=== PATIENT | female | born 1935 | race Caucasian/White ===

== ENCOUNTER 2017-09-07 19:01 | Emergency (ER) | payer OTHER, MEDICARE ==
[~2017-09-07] VITALS: Ht 411.5 cm; Wt 61.7 kg
[~2017-09-07 19:01] MED LIST: ASCORBIC ACID500 M3 PO; ASPIRIN81 M2 PO; ATORVASTATIN CA10 MG PO; ATORVASTATIN CA20 MG PO; BACTRIM,SEPT1 TABLET PO; CALCIUM 600 +1 EAC4 PO; FERREX 150150 MG PO; FERROUS SULFAT325 MG PO; FOLIC ACID1 MG PO; FUROSEMIDE20 MG PO; GLIMEPIRIDE2 MG PO; GLYBURIDE5 MG PO; HYDROCODON-ACE1 EAC7 PO; KLOR-CON 1010 ME1 PO; MAG-OXIDE400 MG PO; METRONIDAZOLE500 MG PO; OMEPRAZOLE20 MG PO; OXYCODONE HCL5 MG PO; POLYETHYLENE GL17 GM PO; RANITIDINE HCL150 MG PO; SENNA-TIME S T1 EACH PO; THERAGRAN1 TABLET PO; TYLENOL EXTRA500 MG PO
[2017-09-07 22:37] LABS: POINT-OF-CARE METER ID UU13113800
[2017-09-07 23:43] VITALS: BP 118/61
== END 2017-09-07 23:46 | disposition home or self-care (01) ==
LOC: EME 19:01
PROVIDERS: Physician Assistant Medical
DX: S80.12XA Contusion of left lower leg, initial encounter (principal); S00.83XA Contusion of other part of head, initial encounter; M79.602 Pain in left arm; M25.552 Pain in left hip; M54.9 Dorsalgia, unspecified; W03.XXXA Other fall on same level due to collision with another person, initial encounter; M16.0 Bilateral primary osteoarthritis of hip; E11.9 Type 2 diabetes mellitus without complications; Z79.84 Long term (current) use of oral hypoglycemic drugs; Z79.82 Long term (current) use of aspirin
CPT/HCPCS: 70450; 70486; 72100; 73060; 73502; 82948; 99281; 99284

== ENCOUNTER 2018-02-26 21:17 | Inpatient (IN) | payer OTHER, MEDICARE ==
[~2018-02-26] VITALS: Ht 149.9 cm; Wt 57.2 kg
[2018-02-26 21:50] LABS: BASOPHIL (%) 0.1 % (0-1); EOSINOPHIL (%) 0.1 % (0-5); HEMATOCRIT 27.9 % (36.0-46.0); HEMOGLOBIN 9.3 G/DL (11.9-15.5); IMMATURE GRANULOCYTE (%) 0.6 % (0.0-0.7); LYMPHOCYTE (%) 9.2 % (15-42); LYMPHOCYTE COUNT 0.6 K/uL (1.0-2.8); MCH 33.1 PG (29.0-34.0); MCHC 33.3 G/DL (30.0-36.0); MCV 99.3 FL (83-99); MONOCYTE (%) 5.9 % (3-12); MONOCYTE COUNT 0.4 K/uL (0-0.8); NEUTROPHIL (%) 84.1 % (45-76); NEUTROPHIL COUNT 5.7 K/uL (1.8-6.4); PLATELET COUNT 216 K/uL (156-360); RBC DIS.WIDTH-CV 14.5 % (11.8-14.6); RBC DIS.WIDTH-SD 52.8 % (39-53); RED BLOOD COUNT 2.81 M/uL (3.80-5.20); WHITE BLOOD COUNT 6.8 K/uL (4.1-10.2)
[2018-02-26 22:09] LABS: CHLORIDE 104 MEQ/L (99-109); POTASSIUM 3.7 MEQ/L (3.7-5.4); SODIUM 142 MEQ/L (136-147); TOTAL BILIRUBIN 0.6 MG/DL (0.0-1.0)
[2018-02-26 22:18] LABS: TROP-I INTERPRETATION NEGATIVE; TROPONIN-I < 0.01 ng/mL (0.0-0.30)
[2018-02-26 22:19] LABS: ALKALINE PHOSPHATASE 59 IU/L (3-129); ALT (GPT) 12 IU/L (3-49); AST (GOT) 19 IU/L (2-34); CREATININE 0.7 MG/DL (0.6-1.3); GFR ESTIMATE (CALCULATED) > 59 mL/min/; GLUCOSE 176 mg/dL (70-99); TOTAL PROTEIN 6.3 G/DL (6.4-8.3); UREA NITROGEN (BUN) 22 mg/dL (9-23)
[2018-02-26 22:30] LABS: LIPASE 712 U/L (1.0-51.0)
[2018-02-26] MEDS ORDERED: ONE DAILY MULT1 EACH PO (23:34)
[2018-02-26] MEDS ORDERED: METFORMIN HCL500 MG PO (23:42)
[2018-02-26] MEDS ORDERED: K-DUR10 MEQ PO (23:43)
[2018-02-26] MEDS ORDERED: TRAMADOL HCL50 MG PO (23:43)
[2018-02-27] VITALS (7 sets, daily range): BP systolic 100–116; BP diastolic 49–64
[2018-02-27 02:31] LABS: C-REACTIVE PROTEIN 1.5 MG/L (0-10)
[2018-02-27 06:18] LABS: BASOPHIL (%) 0.3 % (0-1); EOSINOPHIL (%) 0 % (0-5); HEMATOCRIT 25.9 % (36.0-46.0); HEMOGLOBIN 8.4 G/DL (11.9-15.5); IMMATURE GRANULOCYTE (%) 0.5 % (0.0-0.7); LYMPHOCYTE (%) 6.3 % (15-42); LYMPHOCYTE COUNT 0.4 K/uL (1.0-2.8); MCH 32.8 PG (29.0-34.0); MCHC 32.4 G/DL (30.0-36.0); MCV 101.2 FL (83-99); MONOCYTE (%) 4.3 % (3-12); MONOCYTE COUNT 0.3 K/uL (0-0.8); NEUTROPHIL (%) 88.6 % (45-76); NEUTROPHIL COUNT 5.7 K/uL (1.8-6.4); PLATELET COUNT 199 K/uL (156-360); RBC DIS.WIDTH-CV 14.7 % (11.8-14.6); RBC DIS.WIDTH-SD 54.4 % (39-53); RED BLOOD COUNT 2.56 M/uL (3.80-5.20); WHITE BLOOD COUNT 6.5 K/uL (4.1-10.2)
[2018-02-27 06:26] LABS: ALBUMIN 3.6 G/DL (3.2-4.8); ALKALINE PHOSPHATASE 50 IU/L (3-129); ALT (GPT) 12 IU/L (3-49); AST (GOT) 20 IU/L (2-34); CHLORIDE 105 MEQ/L (99-109); CREATININE 0.7 MG/DL (0.6-1.3); GFR ESTIMATE (CALCULATED) > 59 mL/min/; GLUCOSE 146 mg/dL (70-99); SODIUM 145 MEQ/L (136-147); TOTAL BILIRUBIN 0.5 MG/DL (0.0-1.0); TOTAL PROTEIN 5.6 G/DL (6.4-8.3); UREA NITROGEN (BUN) 19 mg/dL (9-23)
[2018-02-27 08:26] LABS: LIPASE 216 U/L (1.0-51.0)
[2018-02-27 11:40] LABS: APPEARANCE CLEAR ((CLEAR)); BILIRUBIN NEGATIVE; BLOOD NEGATIVE; COLOR YELLOW ((YELLOW)); GLUCOSE (STRIP) 50; KETONES 20; LEUKOCYTES NEGATIVE; NITRITE NEGATIVE; PROTEIN (STRIP) NEGATIVE; SPECIFIC GRAVITY 1.045 (1.000-1.030); UCUL ADDED? NO; UROBILINOGEN 0.2 MG/DL (0.2-1.0)
[2018-02-28 03:45] VITALS: BP 107/54
[2018-02-28 06:20] LABS: BASOPHIL (%) 0.8 % (0-1); BASOPHIL COUNT 0.1 K/uL (0-0.1); EOSINOPHIL (%) 0.5 % (0-5); HEMATOCRIT 26.4 % (36.0-46.0); HEMOGLOBIN 8.5 G/DL (11.9-15.5); IMMATURE GRANULOCYTE (%) 0.5 % (0.0-0.7); LYMPHOCYTE (%) 16.8 % (15-42); LYMPHOCYTE COUNT 1.1 K/uL (1.0-2.8); MCH 32.8 PG (29.0-34.0); MCHC 32.2 G/DL (30.0-36.0); MCV 101.9 FL (83-99); MONOCYTE (%) 9.2 % (3-12); MONOCYTE COUNT 0.6 K/uL (0-0.8); NEUTROPHIL (%) 72.2 % (45-76); NEUTROPHIL COUNT 4.8 K/uL (1.8-6.4); PLATELET COUNT 202 K/uL (156-360); RBC DIS.WIDTH-SD 56.2 % (39-53); RED BLOOD COUNT 2.59 M/uL (3.80-5.20); WHITE BLOOD COUNT 6.6 K/uL (4.1-10.2)
[2018-02-28 07:02] LABS: ALBUMIN 3.5 G/DL (3.2-4.8); ALKALINE PHOSPHATASE 43 IU/L (3-129); ALT (GPT) 13 IU/L (3-49); AST (GOT) 28 IU/L (2-34); CHLORIDE 109 MEQ/L (99-109); CREATININE 0.9 MG/DL (0.6-1.3); DIRECT BILIRUBIN 0.1 mg/dL (0.0-0.3); GFR ESTIMATE (CALCULATED) > 59 mL/min/; LIPASE 27 U/L (1.0-51.0); POTASSIUM 3.6 MEQ/L (3.7-5.4); SODIUM 147 MEQ/L (136-147); TOTAL BILIRUBIN 0.5 MG/DL (0.0-1.0); TOTAL PROTEIN 5.5 G/DL (6.4-8.3); UREA NITROGEN (BUN) 17 mg/dL (9-23)
[2018-02-28 07:04] LABS: GLUCOSE 48 mg/dL (70-99)
[2018-02-28 08:10] VITALS: BP 108/70
[2018-02-28 12:03] VITALS: BP 109/55
[2018-02-28 15:43] VITALS: BP 105/51
[2018-02-28 19:38] VITALS: BP 116/53
[2018-03-01 00:06] VITALS: BP 97/52
[2018-03-01 04:27] VITALS: BP 102/53
[2018-03-01 05:35] VITALS: BP 111/56
[2018-03-01 06:36] LABS: HEMATOCRIT 26.5 % (36.0-46.0); HEMOGLOBIN 8.5 G/DL (11.9-15.5); MCH 32.9 PG (29.0-34.0); MCHC 32.1 G/DL (30.0-36.0); MCV 102.7 FL (83-99); PLATELET COUNT 169 K/uL (156-360); RBC DIS.WIDTH-CV 14.8 % (11.8-14.6); RBC DIS.WIDTH-SD 55.2 % (39-53); RED BLOOD COUNT 2.58 M/uL (3.80-5.20); WHITE BLOOD COUNT 7.6 K/uL (4.1-10.2)
[2018-03-01 07:11] LABS: ALKALINE PHOSPHATASE 39 IU/L (3-129); ALT (GPT) 14 IU/L (3-49); AST (GOT) 26 IU/L (2-34); CHLORIDE 109 MEQ/L (99-109); CREATININE 0.8 MG/DL (0.6-1.3); GFR ESTIMATE (CALCULATED) > 59 mL/min/; POTASSIUM 3.7 MEQ/L (3.7-5.4); SODIUM 145 MEQ/L (136-147); TOTAL PROTEIN 5.1 G/DL (6.4-8.3); UREA NITROGEN (BUN) 12 mg/dL (9-23)
[2018-03-01 07:12] LABS: GLUCOSE 116 mg/dL (70-99); TOTAL BILIRUBIN 0.7 MG/DL (0.0-1.0)
[2018-03-01] MEDS ORDERED: DILAUDID4 MG PO (11:36)
[2018-03-01] MEDS ORDERED: COLACE100 MG PO (11:36)
[2018-03-01] MEDS ORDERED: ONDANSETRON HCL8 MG PO (11:36)
[2018-03-01 16:25] VITALS: BP 105/58
[2018-03-01 20:26] VITALS: BP 116/54
[2018-03-01 23:43] VITALS: BP 113/57
[2018-03-02 04:09] VITALS: BP 112/54
[2018-03-02 07:34] VITALS: BP 132/60
[2018-03-02 08:50] LABS: HEMATOCRIT 32.1 % (36.0-46.0); HEMOGLOBIN 10.7 G/DL (11.9-15.5); MCH 33.1 PG (29.0-34.0); MCHC 33.3 G/DL (30.0-36.0); MCV 99.4 FL (83-99); PLATELET COUNT 149 K/uL (156-360); RBC DIS.WIDTH-CV 15.5 % (11.8-14.6); RBC DIS.WIDTH-SD 56.5 % (39-53); RED BLOOD COUNT 3.23 M/uL (3.80-5.20)
[2018-03-02 09:17] LABS: ALBUMIN 3.1 G/DL (3.2-4.8); ALKALINE PHOSPHATASE 47 IU/L (3-129); CHLORIDE 108 MEQ/L (99-109); CREATININE 0.7 MG/DL (0.6-1.3); GFR ESTIMATE (CALCULATED) > 59 mL/min/; GLUCOSE 91 mg/dL (70-99); POTASSIUM 3.4 MEQ/L (3.7-5.4); SODIUM 142 MEQ/L (136-147); TOTAL PROTEIN 4.6 G/DL (6.4-8.3); UREA NITROGEN (BUN) 11 mg/dL (9-23)
[2018-03-02 09:18] LABS: ALT (GPT) 35 IU/L (3-49); AST (GOT) 61 IU/L (2-34); TOTAL BILIRUBIN 1.1 MG/DL (0.0-1.0)
[2018-03-02 11:22] LABS: HEMOGLOBIN A1c (GLYCOHEMOGLOB) 6.6 % (Below 5.7)
[2018-03-02 12:00] VITALS: BP 117/56
[2018-03-02 16:48] VITALS: BP 112/58
[2018-03-02 20:48] VITALS: BP 92/46
[2018-03-03] VITALS (7 sets, daily range): BP systolic 85–131; BP diastolic 40–61
[2018-03-03 06:01] LABS: HEMOGLOBIN 9.9 G/DL (11.9-15.5); MCH 32.7 PG (29.0-34.0); PLATELET COUNT 161 K/uL (156-360); RBC DIS.WIDTH-CV 15.1 % (11.8-14.6); RBC DIS.WIDTH-SD 54.7 % (39-53); RED BLOOD COUNT 3.03 M/uL (3.80-5.20); WHITE BLOOD COUNT 8.8 K/uL (4.1-10.2)
[2018-03-03 06:17] LABS: CHLORIDE 108 MEQ/L (99-109); CREATININE 0.7 MG/DL (0.6-1.3); GFR ESTIMATE (CALCULATED) > 59 mL/min/; GLUCOSE 125 mg/dL (70-99); POTASSIUM 3.5 MEQ/L (3.7-5.4); SODIUM 138 MEQ/L (136-147); UREA NITROGEN (BUN) 11 mg/dL (9-23)
[2018-03-04 00:42] VITALS: BP 99/49
[2018-03-04 04:12] VITALS: BP 105/52
[2018-03-04 05:29] LABS: HEMATOCRIT 26.6 % (36.0-46.0); HEMOGLOBIN 8.9 G/DL (11.9-15.5); MCH 32.8 PG (29.0-34.0); MCHC 33.5 G/DL (30.0-36.0); MCV 98.2 FL (83-99); PLATELET COUNT 163 K/uL (156-360); RBC DIS.WIDTH-CV 14.7 % (11.8-14.6); RBC DIS.WIDTH-SD 53.1 % (39-53); RED BLOOD COUNT 2.71 M/uL (3.80-5.20); WHITE BLOOD COUNT 6.6 K/uL (4.1-10.2)
[2018-03-04 06:09] LABS: CHLORIDE 109 MEQ/L (99-109); CREATININE 0.6 MG/DL (0.6-1.3); GFR ESTIMATE (CALCULATED) > 59 mL/min/; POTASSIUM 3.9 MEQ/L (3.7-5.4); SODIUM 142 MEQ/L (136-147); UREA NITROGEN (BUN) 9 mg/dL (9-23)
[2018-03-04 06:11] LABS: GLUCOSE 87 mg/dL (70-99)
[2018-03-04 07:50] VITALS: BP 113/61
[2018-03-04 11:34] VITALS: BP 114/56
[2018-03-04 12:46] LABS: HEMATOCRIT 28.8 % (36.0-46.0); HEMOGLOBIN 9.3 G/DL (11.9-15.5); MCV 98.3 FL (83-99)
[2018-03-04 16:00] VITALS: BP 124/59
[2018-03-04 20:28] VITALS: BP 126/61
[2018-03-05 00:07] VITALS: BP 104/53
[2018-03-05 04:05] VITALS: BP 124/59
[2018-03-05 07:50] VITALS: BP 124/58
[2018-03-05 13:50] VITALS: BP 124/58
[2018-03-05] MEDS ORDERED: HYDROMORPHONE HC2 MG PO (16:29)
== END 2018-03-05 16:00 | DRG 419 ==
LOC: EME 21:17 → EDOF 02-27 00:48 → 5SOUTH 02-27 00:48 → ENRESERV 02-27 00:50 → 5SOUTH 02-27 03:00
PROVIDERS: Emergency Medicine; Hospitalist; Internal Medicine; Physician Assistant Medical; Physician Assistant Surgical; Surgery
PROC: 0FT44ZZ Resection of Gallbladder, Percutaneous Endoscopic Approach (ICD-10-PCS; principal; 2018-03-01)
PROC: 30233N1 Transfusion of Nonautologous Red Blood Cells into Peripheral Vein, Percutaneous Approach (ICD-10-PCS; 2018-03-01)
DX: K85.10 Biliary acute pancreatitis without necrosis or infection (principal); K80.70 Calculus of gallbladder and bile duct without cholecystitis without obstruction; E86.0 Dehydration; D50.9 Iron deficiency anemia, unspecified; K59.00 Constipation, unspecified; R33.9 Retention of urine, unspecified; R74.8 Abnormal levels of other serum enzymes; I10 Essential (primary) hypertension; R94.31 Abnormal electrocardiogram [ECG] [EKG]; K44.9 Diaphragmatic hernia without obstruction or gangrene; E78.5 Hyperlipidemia, unspecified; M19.90 Unspecified osteoarthritis, unspecified site; G89.29 Other chronic pain; M47.816 Spondylosis without myelopathy or radiculopathy, lumbar region; M48.54XD Collapsed vertebra, not elsewhere classified, thoracic region, subsequent encounter for fracture with routine healing; E11.9 Type 2 diabetes mellitus without complications; R19.7 Diarrhea, unspecified; Z83.3 Family history of diabetes mellitus; Z98.41 Cataract extraction status, right eye; Z98.42 Cataract extraction status, left eye
CPT/HCPCS: 74177; 74181; 76705; 80048; 80053; 80076; 81003; 82948; 83036; 83605; 83690; 84484; 85014; 85018; 85025; 85027; 86140; 86850; 86900; 86901; 86920; 88304; 93005; 93306; 94799; 97530 GP; 99281; 99285; C9113; J0690; J1170; J1644; J1815; J2405; J3010; J7030; J7040; J7042; J7120; P9016

== ENCOUNTER 2018-03-05 11:38 | Inpatient (IN) | payer OTHER, MEDICARE ==
[~2018-03-05] VITALS: Ht 152.4 cm; Wt 57.6 kg
[~2018-03-05 11:38] MED LIST changes: +COLACE100 MG PO; +DILAUDID4 MG PO; +K-DUR10 MEQ PO; +METFORMIN HCL500 MG PO; +ONDANSETRON HCL8 MG PO; +ONE DAILY MULT1 EACH PO; +TRAMADOL HCL50 MG PO
[2018-03-05] MEDS ORDERED: HYDROMORPHONE HC2 MG PO (16:29)
[2018-03-05 17:05] VITALS: BP 124/60
[2018-03-05 21:01] VITALS: BP 109/52
[2018-03-06 06:04] VITALS: BP 120/54
[2018-03-06 07:59] LABS: HEMATOCRIT 29.4 % (36.0-46.0); HEMOGLOBIN 9.8 G/DL (11.9-15.5); MCH 32.7 PG (29.0-34.0); MCHC 33.3 G/DL (30.0-36.0); PLATELET COUNT 191 K/uL (156-360); RBC DIS.WIDTH-CV 14.5 % (11.8-14.6); WHITE BLOOD COUNT 5.6 K/uL (4.1-10.2)
[2018-03-06 08:28] LABS: ALBUMIN 2.8 G/DL (3.2-4.8); ALT (GPT) 15 IU/L (3-49); CHLORIDE 107 MEQ/L (99-109); CREATININE 0.6 MG/DL (0.6-1.3); GFR ESTIMATE (CALCULATED) > 59 mL/min/; GLUCOSE 102 mg/dL (70-99); POTASSIUM 3.6 MEQ/L (3.7-5.4); SODIUM 143 MEQ/L (136-147); TOTAL BILIRUBIN 0.9 MG/DL (0.0-1.0); TOTAL PROTEIN 4.8 G/DL (6.4-8.3); UREA NITROGEN (BUN) 7 mg/dL (9-23)
[2018-03-06 08:33] LABS: ALKALINE PHOSPHATASE 139 IU/L (3-129); AST (GOT) 16 IU/L (2-34)
[2018-03-06 16:08] VITALS: BP 119/58
[2018-03-07 04:34] VITALS: BP 135/60
[2018-03-07 14:30] VITALS: BP 101/51
[2018-03-08 05:28] VITALS: BP 131/81
[2018-03-08 15:18] VITALS: BP 110/56
[2018-03-09 05:18] VITALS: BP 118/57
[2018-03-09 15:53] VITALS: BP 120/56
[2018-03-10 05:31] LABS: BASOPHIL (%) 0.4 % (0-1); EOSINOPHIL (%) 1.6 % (0-5); EOSINOPHIL COUNT 0.1 K/uL (0-0.3); HEMATOCRIT 30.8 % (36.0-46.0); HEMOGLOBIN 10.1 G/DL (11.9-15.5); LYMPHOCYTE (%) 11.1 % (15-42); LYMPHOCYTE COUNT 0.9 K/uL (1.0-2.8); MCH 32.2 PG (29.0-34.0); MCHC 32.8 G/DL (30.0-36.0); MCV 98.1 FL (83-99); MONOCYTE (%) 6.4 % (3-12); MONOCYTE COUNT 0.5 K/uL (0-0.8); NEUTROPHIL (%) 79.5 % (45-76); NEUTROPHIL COUNT 6.6 K/uL (1.8-6.4); PLATELET COUNT 248 K/uL (156-360); RBC DIS.WIDTH-CV 14.1 % (11.8-14.6); RBC DIS.WIDTH-SD 50.9 % (39-53); RED BLOOD COUNT 3.14 M/uL (3.80-5.20); WHITE BLOOD COUNT 8.3 K/uL (4.1-10.2)
[2018-03-10 05:46] VITALS: BP 134/63
[2018-03-10 05:52] LABS: ALBUMIN 3.2 G/DL (3.2-4.8); ALKALINE PHOSPHATASE 158 IU/L (3-129); ALT (GPT) 25 IU/L (3-49); CHLORIDE 99 MEQ/L (99-109); CREATININE 0.7 MG/DL (0.6-1.3); DIRECT BILIRUBIN 0.2 mg/dL (0.0-0.3); GFR ESTIMATE (CALCULATED) > 59 mL/min/; GLUCOSE 112 mg/dL (70-99); LIPASE 52 U/L (1.0-51.0); MAGNESIUM 1.2 mg/dl (1.3-2.7); PHOSPHORUS 3.7 mg/dL (2.5-4.9); POTASSIUM 3.5 MEQ/L (3.7-5.4); SODIUM 141 MEQ/L (136-147); TOTAL PROTEIN 5.3 G/DL (6.4-8.3); UREA NITROGEN (BUN) 12 mg/dL (9-23)
[2018-03-10 05:55] LABS: AST (GOT) 32 IU/L (2-34); TOTAL BILIRUBIN 0.6 MG/DL (0.0-1.0)
[2018-03-10 15:42] VITALS: BP 130/59
[2018-03-10 20:13] LABS: APPEARANCE SL.HAZY ((CLEAR)); BILIRUBIN NEGATIVE; BLOOD NEGATIVE; COLOR YELLOW ((YELLOW)); GLUCOSE (STRIP) NEGATIVE; KETONES 5; LEUKOCYTES LARGE; NITRITE NEGATIVE; PROTEIN (STRIP) NEGATIVE; SPECIFIC GRAVITY 1.024 (1.000-1.030); UROBILINOGEN 0.2 MG/DL (0.2-1.0)
[2018-03-10 20:31] LABS: BACTERIA NONE SEEN /HPF; EPITHELIAL CELLS RARE /HPF; MUCUS TRACE /LPF; UCUL ADDED? YES; WHITE BLOOD CELLS TNTC /HPF (0-5)
[2018-03-10 23:42] VITALS: BP 104/58
[2018-03-11 05:50] VITALS: BP 105/55
[2018-03-11 06:00] LABS: BASOPHIL (%) 0.3 % (0-1); EOSINOPHIL (%) 0.7 % (0-5); EOSINOPHIL COUNT 0.1 K/uL (0-0.3); LYMPHOCYTE (%) 5.7 % (15-42); LYMPHOCYTE COUNT 0.7 K/uL (1.0-2.8); MCH 31.9 PG (29.0-34.0); MCHC 32.1 G/DL (30.0-36.0); MCV 99.3 FL (83-99); MONOCYTE (%) 5.2 % (3-12); MONOCYTE COUNT 0.6 K/uL (0-0.8); NEUTROPHIL (%) 87.1 % (45-76); NEUTROPHIL COUNT 10.1 K/uL (1.8-6.4); PLATELET COUNT 260 K/uL (156-360); RBC DIS.WIDTH-CV 14.4 % (11.8-14.6); RBC DIS.WIDTH-SD 52.4 % (39-53); RED BLOOD COUNT 2.82 M/uL (3.80-5.20); WHITE BLOOD COUNT 11.6 K/uL (4.1-10.2)
[2018-03-11 06:20] LABS: ALBUMIN 2.7 G/DL (3.2-4.8); ALKALINE PHOSPHATASE 137 IU/L (3-129); ALT (GPT) 23 IU/L (3-49); AST (GOT) 25 IU/L (2-34); CHLORIDE 100 MEQ/L (99-109); CREATININE 0.9 MG/DL (0.6-1.3); GFR ESTIMATE (CALCULATED) > 59 mL/min/; GLUCOSE 161 mg/dL (70-99); INTER. NORMALIZED RATIO 1.1; PHOSPHORUS 4.2 mg/dL (2.5-4.9); POTASSIUM 3.9 MEQ/L (3.7-5.4); SODIUM 140 MEQ/L (136-147); TOTAL BILIRUBIN 0.7 MG/DL (0.0-1.0); TOTAL PROTEIN 4.9 G/DL (6.4-8.3); UREA NITROGEN (BUN) 15 mg/dL (9-23)
[2018-03-11 06:24] LABS: MAGNESIUM 1.8 mg/dl (1.3-2.7)
[2018-03-11 13:14] VITALS: BP 128/56
[2018-03-11 16:40] VITALS: BP 107/51
[2018-03-12 00:17] VITALS: BP 114/53
[2018-03-12 05:49] VITALS: BP 98/52
[2018-03-12 11:45] VITALS: BP 116/56
[2018-03-12 17:10] VITALS: BP 150/72
[2018-03-13 04:46] VITALS: BP 126/61
[2018-03-13 10:47] LABS: HEMATOCRIT 30.1 % (36.0-46.0); HEMOGLOBIN 9.8 G/DL (11.9-15.5); MCH 31.9 PG (29.0-34.0); MCHC 32.6 G/DL (30.0-36.0); RBC DIS.WIDTH-CV 14.1 % (11.8-14.6); RBC DIS.WIDTH-SD 50.7 % (39-53); RED BLOOD COUNT 3.07 M/uL (3.80-5.20); WHITE BLOOD COUNT 9.4 K/uL (4.1-10.2)
[2018-03-13 11:30] LABS: PLATELET COUNT 348 K/uL (156-360)
[2018-03-13 11:39] LABS: ALKALINE PHOSPHATASE 192 IU/L (3-129); ALT (GPT) 17 IU/L (3-49); AST (GOT) 18 IU/L (2-34); CHLORIDE 97 MEQ/L (99-109); CREATININE 0.9 MG/DL (0.6-1.3); GFR ESTIMATE (CALCULATED) > 59 mL/min/; GLUCOSE 212 mg/dL (70-99); POTASSIUM 3.9 MEQ/L (3.7-5.4); SODIUM 140 MEQ/L (136-147); TOTAL BILIRUBIN 0.6 MG/DL (0.0-1.0); TOTAL PROTEIN 5.6 G/DL (6.4-8.3); UREA NITROGEN (BUN) 17 mg/dL (9-23)
[2018-03-13 15:14] VITALS: BP 102/61
[2018-03-14 05:09] VITALS: BP 113/56
[2018-03-14 06:57] LABS: BASOPHIL (%) 0.5 % (0-1); EOSINOPHIL (%) 2.2 % (0-5); EOSINOPHIL COUNT 0.1 K/uL (0-0.3); HEMATOCRIT 28.5 % (36.0-46.0); HEMOGLOBIN 9.4 G/DL (11.9-15.5); IMMATURE GRANULOCYTE (%) 0.7 % (0.0-0.7); LYMPHOCYTE (%) 12.3 % (15-42); LYMPHOCYTE COUNT 0.7 K/uL (1.0-2.8); MCH 32.1 PG (29.0-34.0); MCV 97.3 FL (83-99); MONOCYTE COUNT 0.5 K/uL (0-0.8); NEUTROPHIL (%) 76.3 % (45-76); NEUTROPHIL COUNT 4.5 K/uL (1.8-6.4); PLATELET COUNT 331 K/uL (156-360); RBC DIS.WIDTH-CV 14.2 % (11.8-14.6); RBC DIS.WIDTH-SD 50.7 % (39-53); RED BLOOD COUNT 2.93 M/uL (3.80-5.20); WHITE BLOOD COUNT 5.8 K/uL (4.1-10.2)
[2018-03-14 07:43] LABS: ALBUMIN 2.9 G/DL (3.2-4.8); ALKALINE PHOSPHATASE 167 IU/L (3-129); ALT (GPT) 13 IU/L (3-49); AST (GOT) 14 IU/L (2-34); CHLORIDE 100 MEQ/L (99-109); CREATININE 0.9 MG/DL (0.6-1.3); GFR ESTIMATE (CALCULATED) > 59 mL/min/; GLUCOSE 131 mg/dL (70-99); POTASSIUM 3.7 MEQ/L (3.7-5.4); SODIUM 142 MEQ/L (136-147); TOTAL BILIRUBIN 0.6 MG/DL (0.0-1.0); TOTAL PROTEIN 5.5 G/DL (6.4-8.3); UREA NITROGEN (BUN) 14 mg/dL (9-23)
[2018-03-14 15:41] VITALS: BP 121/57
[2018-03-15 06:23] VITALS: BP 123/60
[2018-03-15 15:29] VITALS: BP 111/56
[2018-03-16 05:38] VITALS: BP 116/58
[2018-03-16 14:23] VITALS: BP 91/54
[2018-03-16 14:31] VITALS: BP 68/36
[2018-03-16 14:32] VITALS: BP 76/44
[2018-03-16 15:09] VITALS: BP 91/54
[2018-03-16 17:07] LABS: HEMATOCRIT 26.1 % (36.0-46.0); HEMOGLOBIN 8.8 G/DL (11.9-15.5); MCH 32.2 PG (29.0-34.0); MCHC 33.7 G/DL (30.0-36.0); MCV 95.6 FL (83-99); NRBC (%) 1.4 /100 WBC (0-0); PLATELET COUNT 338 K/uL (156-360); RBC DIS.WIDTH-CV 14.1 % (11.8-14.6); RBC DIS.WIDTH-SD 49.3 % (39-53); RED BLOOD COUNT 2.73 M/uL (3.80-5.20); WHITE BLOOD COUNT 8.4 K/uL (4.1-10.2)
[2018-03-16 17:33] LABS: ALBUMIN 2.9 G/DL (3.2-4.8); ALKALINE PHOSPHATASE 146 IU/L (3-129); ALT (GPT) 9 IU/L (3-49); AST (GOT) 17 IU/L (2-34); CHLORIDE 100 MEQ/L (99-109); CREATININE 0.9 MG/DL (0.6-1.3); GFR ESTIMATE (CALCULATED) > 59 mL/min/; LIPASE 66 U/L (1.0-51.0); POTASSIUM 3.7 MEQ/L (3.7-5.4); SODIUM 139 MEQ/L (136-147); TOTAL PROTEIN 5.1 G/DL (6.4-8.3); UREA NITROGEN (BUN) 8 mg/dL (9-23)
[2018-03-16 17:34] LABS: GLUCOSE 228 mg/dL (70-99); TOTAL BILIRUBIN 0.4 MG/DL (0.0-1.0)
[2018-03-16 20:52] LABS: HEMATOCRIT 27.5 % (36.0-46.0); HEMOGLOBIN 9.1 G/DL (11.9-15.5); MCV 97.2 FL (83-99)
[2018-03-16 20:59] LABS: INTER. NORMALIZED RATIO 1.1
[2018-03-16 21:02] LABS: PTT 24.3 SEC (25-37)
[2018-03-16] MEDS ORDERED: TUMS500 MG PO (23:10)
== END 2018-03-16 21:25 | DRG 945 ==
LOC: 3WEST 11:38 → ENPENDDIS 03-13 → ENRESERV 03-16 20:31 → CANRESERV 03-16 20:32 → ENRESERV 03-16 20:32 → 3WEST 03-16 21:25 → EDPENDDISDT 03-17
PROVIDERS: Hospitalist; Internal Medicine; Physical Medicine & Rehabilitation Pain Medicine; Surgery
PROC: F07M0ZZ Range of Motion and Joint Mobility Treatment of Musculoskeletal System - Whole Body (ICD-10-PCS; principal; 2018-03-05)
DX: R53.1 Weakness (principal); D62 Acute posthemorrhagic anemia; I10 Essential (primary) hypertension; E78.5 Hyperlipidemia, unspecified; M19.90 Unspecified osteoarthritis, unspecified site; E11.649 Type 2 diabetes mellitus with hypoglycemia without coma; K91.871 Postprocedural hematoma of a digestive system organ or structure following other procedure; Y83.8 Other surgical procedures as the cause of abnormal reaction of the patient, or of later complication, without mention of misadventure at the time of the procedure; E66.9 Obesity, unspecified; Z68.24 Body mass index [BMI] 24.0-24.9, adult; E87.6 Hypokalemia; N39.0 Urinary tract infection, site not specified; K91.89 Other postprocedural complications and disorders of digestive system; B96.20 Unspecified Escherichia coli [E. coli] as the cause of diseases classified elsewhere; E11.65 Type 2 diabetes mellitus with hyperglycemia; K44.9 Diaphragmatic hernia without obstruction or gangrene; K85.10 Biliary acute pancreatitis without necrosis or infection; I95.9 Hypotension, unspecified; E86.0 Dehydration; Z79.4 Long term (current) use of insulin
CPT/HCPCS: 49406; 74176; 74177; 75989; 78226; 80048; 80053; 81003; 82248; 82948; 83605; 83690; 83735; 84100; 85014; 85018; 85025; 85027; 85610; 85730; 86850; 86900; 86901; 86920; 87070; 87075; 87077; 87086; 87186; 87205; 94799; 97110 GO; 97530 GP; A9510; C1729; C1769; J1644; J1815; J2405; J3010; J3475; J7030; J7040; S0074

== ENCOUNTER → 2018-03-12 | Outpatient (CLI) | payer OTHER, MEDICARE ==
[~2018-03-12] MED LIST changes: +HYDROMORPHONE HC2 MG PO
== END | disposition home or self-care (01) ==
LOC: AMB 12:45
PROVIDERS: Internal Medicine Gastroenterology
PROC: 0DJ08ZZ Inspection of Upper Intestinal Tract, Via Natural or Artificial Opening Endoscopic (ICD-10-PCS; principal; 2018-03-12)
DX: K85.10 Biliary acute pancreatitis without necrosis or infection (principal); Z53.09 Procedure and treatment not carried out because of other contraindication; K44.9 Diaphragmatic hernia without obstruction or gangrene
CPT/HCPCS: 74018; 76000; 82948; 87081; C1769; J0330; J1100; J2405

== ENCOUNTER 2018-03-16 19:49 | Inpatient (IN) | payer OTHER, MEDICARE ==
[~2018-03-16] VITALS: Ht 152.4 cm; Wt 58.0 kg
[2018-03-16 21:35] VITALS: BP 99/51
[2018-03-16 22:57] VITALS: BP 99/51
[2018-03-16] MEDS ORDERED: TUMS500 MG PO (23:10)
[2018-03-16 23:24] VITALS: BP 96/47
[2018-03-17] VITALS (15 sets, daily range): BP systolic 85–125; BP diastolic 44–60
[2018-03-17 00:31] LABS: HEMATOCRIT 23.2 % (36.0-46.0); MCV 95.1 FL (83-99)
[2018-03-17 05:41] LABS: HEMOGLOBIN 7.5 G/DL (11.9-15.5); MCH 31.4 PG (29.0-34.0); MCHC 32.6 G/DL (30.0-36.0); MCV 96.2 FL (83-99); PLATELET COUNT 339 K/uL (156-360); RBC DIS.WIDTH-CV 14.2 % (11.8-14.6); RBC DIS.WIDTH-SD 50.2 % (39-53); RED BLOOD COUNT 2.39 M/uL (3.80-5.20)
[2018-03-17 06:19] LABS: CHLORIDE 100 MEQ/L (99-109); GFR ESTIMATE (CALCULATED) 56 mL/min/; GLUCOSE 227 mg/dL (70-99); POTASSIUM 3.7 MEQ/L (3.7-5.4); SODIUM 138 MEQ/L (136-147); UREA NITROGEN (BUN) 11 mg/dL (9-23)
[2018-03-17 12:51] LABS: C DIFF TOXIN NEGATIVE (NEGATIVE)
[2018-03-17 14:51] LABS: HEMATOCRIT 28.5 % (36.0-46.0); HEMOGLOBIN 9.6 G/DL (11.9-15.5); MCV 90.8 FL (83-99)
[2018-03-17 17:10] LABS: HEMATOCRIT 30.7 % (36.0-46.0); HEMOGLOBIN 10.4 G/DL (11.9-15.5); MCV 90.6 FL (83-99)
[2018-03-17 17:17] LABS: HEMATOCRIT 30.7 % (36.0-46.0); HEMOGLOBIN 10.4 G/DL (11.9-15.5); MCV 90.6 FL (83-99)
[2018-03-18 00:26] LABS: HEMATOCRIT 27.2 % (36.0-46.0); HEMOGLOBIN 9.5 G/DL (11.9-15.5); MCV 89.2 FL (83-99)
[2018-03-18 03:30] VITALS: BP 97/70
[2018-03-18 05:10] LABS: BASOPHIL (%) 0.9 % (0-1); BASOPHIL COUNT 0.1 K/uL (0-0.1); EOSINOPHIL (%) 2.8 % (0-5); EOSINOPHIL COUNT 0.2 K/uL (0-0.3); HEMATOCRIT 26.9 % (36.0-46.0); HEMOGLOBIN 9.2 G/DL (11.9-15.5); IMMATURE GRANULOCYTE (%) 0.6 % (0.0-0.7); LYMPHOCYTE (%) 11.6 % (15-42); LYMPHOCYTE COUNT 0.8 K/uL (1.0-2.8); MCH 30.6 PG (29.0-34.0); MCHC 34.2 G/DL (30.0-36.0); MCV 89.4 FL (83-99); MONOCYTE (%) 8.6 % (3-12); MONOCYTE COUNT 0.6 K/uL (0-0.8); NEUTROPHIL (%) 75.5 % (45-76); NEUTROPHIL COUNT 5.2 K/uL (1.8-6.4); PLATELET COUNT 300 K/uL (156-360); RBC DIS.WIDTH-CV 16.9 % (11.8-14.6); RBC DIS.WIDTH-SD 54.4 % (39-53); WHITE BLOOD COUNT 6.9 K/uL (4.1-10.2)
[2018-03-18 05:23] LABS: RED BLOOD COUNT 3.01 M/uL (3.80-5.20)
[2018-03-18 06:03] LABS: CHLORIDE 105 MEQ/L (99-109); CREATININE 0.6 MG/DL (0.6-1.3); GFR ESTIMATE (CALCULATED) > 59 mL/min/; POTASSIUM 3.5 MEQ/L (3.7-5.4); SODIUM 142 MEQ/L (136-147); UREA NITROGEN (BUN) 8 mg/dL (9-23)
[2018-03-18 06:06] LABS: GLUCOSE 63 mg/dL (70-99)
[2018-03-18 07:13] VITALS: BP 99/52
[2018-03-18 11:27] VITALS: BP 135/59
[2018-03-18 12:07] LABS: HEMATOCRIT 27.7 % (36.0-46.0); HEMOGLOBIN 9.4 G/DL (11.9-15.5); MCV 90.5 FL (83-99)
[2018-03-18 15:50] VITALS: BP 143/63
[2018-03-18 18:32] LABS: HEMATOCRIT 31.7 % (36.0-46.0); HEMOGLOBIN 10.6 G/DL (11.9-15.5); MCV 90.8 FL (83-99)
[2018-03-18 19:15] VITALS: BP 100/46
[2018-03-18 23:39] VITALS: BP 135/63
[2018-03-19 00:41] LABS: HEMATOCRIT 28.6 % (36.0-46.0); MCV 90.5 FL (83-99)
[2018-03-19 04:09] VITALS: BP 139/63
[2018-03-19 05:29] LABS: BASOPHIL (%) 1.1 % (0-1); BASOPHIL COUNT 0.1 K/uL (0-0.1); EOSINOPHIL (%) 3.8 % (0-5); EOSINOPHIL COUNT 0.3 K/uL (0-0.3); HEMATOCRIT 29.5 % (36.0-46.0); HEMOGLOBIN 9.9 G/DL (11.9-15.5); IMMATURE GRANULOCYTE (%) 0.8 % (0.0-0.7); LYMPHOCYTE (%) 16.7 % (15-42); LYMPHOCYTE COUNT 1.1 K/uL (1.0-2.8); MCH 30.8 PG (29.0-34.0); MCHC 33.6 G/DL (30.0-36.0); MCV 91.9 FL (83-99); MONOCYTE (%) 9.5 % (3-12); MONOCYTE COUNT 0.6 K/uL (0-0.8); NEUTROPHIL (%) 68.1 % (45-76); NEUTROPHIL COUNT 4.5 K/uL (1.8-6.4); PLATELET COUNT 296 K/uL (156-360); RBC DIS.WIDTH-CV 16.6 % (11.8-14.6); RBC DIS.WIDTH-SD 54.2 % (39-53); RED BLOOD COUNT 3.21 M/uL (3.80-5.20); WHITE BLOOD COUNT 6.6 K/uL (4.1-10.2)
[2018-03-19 05:42] LABS: CHLORIDE 108 MEQ/L (99-109); POTASSIUM 3.9 MEQ/L (3.7-5.4); SODIUM 141 MEQ/L (136-147)
[2018-03-19 05:47] LABS: CREATININE 0.6 MG/DL (0.6-1.3); GFR ESTIMATE (CALCULATED) > 59 mL/min/; GLUCOSE 77 mg/dL (70-99); UREA NITROGEN (BUN) 5 mg/dL (9-23)
[2018-03-19 08:00] VITALS: BP 127/62
[2018-03-19 12:10] LABS: HEMATOCRIT 29.3 % (36.0-46.0); HEMOGLOBIN 9.7 G/DL (11.9-15.5); MCV 93.3 FL (83-99)
[2018-03-19] MEDS ORDERED: FAMOTIDINE20 MG PO (14:09)
[2018-03-19] MEDS ORDERED: LEVEMIR100 UNIT/2 SC (14:10)
[2018-03-19] MEDS ORDERED: LIDOCARE1 EACH TP (14:12)
[2018-03-19] MEDS ORDERED: IMODIUM A-D2 M2 PO (14:13)
[2018-03-19] MEDS ORDERED: NOVOLOG 10100 UNITS/ SC (14:15)
== END 2018-03-19 13:17 | DRG 921 ==
LOC: 3EAST 19:49 → ENRESERV 19:49 → 4EAST 21:54 → ENPENDDIS 03-19 → 4EAST 03-19 13:17
PROVIDERS: Hospitalist; Internal Medicine
PROC: 30233N1 Transfusion of Nonautologous Red Blood Cells into Peripheral Vein, Percutaneous Approach (ICD-10-PCS; principal; 2018-03-17)
DX: K91.870 Postprocedural hematoma of a digestive system organ or structure following a digestive system procedure (principal); Y83.8 Other surgical procedures as the cause of abnormal reaction of the patient, or of later complication, without mention of misadventure at the time of the procedure; I95.9 Hypotension, unspecified; E87.6 Hypokalemia; D64.9 Anemia, unspecified; E11.9 Type 2 diabetes mellitus without complications; E78.5 Hyperlipidemia, unspecified; I10 Essential (primary) hypertension; M19.90 Unspecified osteoarthritis, unspecified site; R00.0 Tachycardia, unspecified; R19.7 Diarrhea, unspecified; Z79.82 Long term (current) use of aspirin
CPT/HCPCS: 80048; 82948; 85014; 85018; 85025; 85027; 86850; 86900; 86901; 86920; 87493; J0610; J1815; J1940; J7030; J7050; P9016

== ENCOUNTER 2018-03-19 11:17 | Inpatient (IN) | payer OTHER, MEDICARE ==
[~2018-03-19 11:17] MED LIST changes: +TUMS500 MG PO
[2018-03-19 13:30] VITALS: BP 140/64
[2018-03-19] MEDS ORDERED: FAMOTIDINE20 MG PO (14:09)
[2018-03-19] MEDS ORDERED: LEVEMIR100 UNIT/2 SC (14:10)
[2018-03-19] MEDS ORDERED: LIDOCARE1 EACH TP (14:12)
[2018-03-19] MEDS ORDERED: IMODIUM A-D2 M2 PO (14:13)
[2018-03-19] MEDS ORDERED: NOVOLOG 10100 UNITS/ SC (14:15)
[2018-03-19 16:13] VITALS: BP 134/61
[2018-03-19 23:40] VITALS: BP 111/59
[2018-03-20 05:22] VITALS: BP 127/58
[2018-03-20 06:31] LABS: HEMATOCRIT 31.4 % (36.0-46.0); HEMOGLOBIN 10.6 G/DL (11.9-15.5); MCH 30.8 PG (29.0-34.0); MCHC 33.8 G/DL (30.0-36.0); MCV 91.3 FL (83-99); PLATELET COUNT 255 K/uL (156-360); RBC DIS.WIDTH-SD 52.8 % (39-53); RED BLOOD COUNT 3.44 M/uL (3.80-5.20); WHITE BLOOD COUNT 6.6 K/uL (4.1-10.2)
[2018-03-20 07:20] LABS: ALBUMIN 2.7 G/DL (3.2-4.8); ALKALINE PHOSPHATASE 110 IU/L (3-129); ALT (GPT) 8 IU/L (3-49); AST (GOT) 19 IU/L (2-34); CHLORIDE 108 MEQ/L (99-109); CREATININE 0.6 MG/DL (0.6-1.3); GFR ESTIMATE (CALCULATED) > 59 mL/min/; POTASSIUM 3.7 MEQ/L (3.7-5.4); SODIUM 144 MEQ/L (136-147); TOTAL PROTEIN 4.9 G/DL (6.4-8.3); UREA NITROGEN (BUN) 7 mg/dL (9-23)
[2018-03-20 07:26] LABS: GLUCOSE 50 mg/dL (70-99); TOTAL BILIRUBIN 0.6 MG/DL (0.0-1.0)
[2018-03-20 15:20] VITALS: BP 141/65
[2018-03-21 04:12] VITALS: BP 142/63
[2018-03-21 15:19] VITALS: BP 131/60
[2018-03-22 05:20] VITALS: BP 123/57
[2018-03-22 10:19] LABS: HEMOGLOBIN A1c (GLYCOHEMOGLOB) 6.1 % (Below 5.7)
[2018-03-22 15:34] VITALS: BP 93/52
[2018-03-22 18:26] VITALS: BP 106/50
[2018-03-23 05:40] VITALS: BP 119/57
[2018-03-23 15:49] VITALS: BP 116/56
[2018-03-24 03:59] VITALS: BP 118/58
[2018-03-24] MEDS ORDERED: PANTOPRAZOLE SO40 MG PO (13:56)
[2018-03-24] MEDS ORDERED: METFORMIN HCL850 MG PO (13:56)
[2018-03-24] MEDS ORDERED: GLIPIZIDE5 MG PO (13:56)
[2018-03-24] MEDS ORDERED: TRAMADOL HCL50 MG PO (13:56)
[2018-03-24] MEDS ORDERED: KLOR-CON M1010 MEQ PO (13:56)
[2018-03-24 14:55] VITALS: BP 100/57
[2018-03-24 19:35] LABS: HEMATOCRIT 34.4 % (36.0-46.0); HEMOGLOBIN 11.4 G/DL (11.9-15.5); MCH 30.8 PG (29.0-34.0); MCHC 33.1 G/DL (30.0-36.0); PLATELET COUNT 236 K/uL (156-360); RBC DIS.WIDTH-CV 15.7 % (11.8-14.6); WHITE BLOOD COUNT 6.8 K/uL (4.1-10.2)
[2018-03-24 20:25] VITALS: BP 150/70
[2018-03-24 20:25] LABS: ALBUMIN 3.5 G/DL (3.2-4.8); ALKALINE PHOSPHATASE 122 IU/L (3-129); ALT (GPT) 7 IU/L (3-49); AST (GOT) 15 IU/L (2-34); CREATININE 0.7 MG/DL (0.6-1.3); GFR ESTIMATE (CALCULATED) > 59 mL/min/; GLUCOSE 156 mg/dL (70-99); SODIUM 138 MEQ/L (136-147); TOTAL BILIRUBIN 0.7 MG/DL (0.0-1.0); UREA NITROGEN (BUN) 15 mg/dL (9-23)
[2018-03-24 20:29] LABS: CHLORIDE 96 MEQ/L (99-109); TOTAL PROTEIN 6.5 G/DL (6.4-8.3)
[2018-03-25 00:42] VITALS: BP 118/53
[2018-03-25 04:25] VITALS: BP 111/67
== END 2018-03-25 14:06 | disposition home health service (06) | DRG 92 ==
LOC: 3WEST 11:17 → ENPENDDIS 03-25 → 3WEST 03-25 09:28
PROVIDERS: Internal Medicine; Psychiatry & Neurology Neurology
PROC: F07M0ZZ Range of Motion and Joint Mobility Treatment of Musculoskeletal System - Whole Body (ICD-10-PCS; principal; 2018-03-19)
DX: R26.9 Unspecified abnormalities of gait and mobility (principal); I10 Essential (primary) hypertension; E11.9 Type 2 diabetes mellitus without complications; E78.5 Hyperlipidemia, unspecified; G89.18 Other acute postprocedural pain; D62 Acute posthemorrhagic anemia; K59.00 Constipation, unspecified; K29.70 Gastritis, unspecified, without bleeding; R10.9 Unspecified abdominal pain; E11.649 Type 2 diabetes mellitus with hypoglycemia without coma; K44.9 Diaphragmatic hernia without obstruction or gangrene; Z79.4 Long term (current) use of insulin; Z90.49 Acquired absence of other specified parts of digestive tract; Z88.8 Allergy status to other drugs, medicaments and biological substances; I95.81 Postprocedural hypotension; E86.0 Dehydration; M19.90 Unspecified osteoarthritis, unspecified site; Z51.89 Encounter for other specified aftercare
CPT/HCPCS: 80053; 82948; 83036; 85027; 97110 GO; 97530 GP; J1815

== ENCOUNTER 2018-04-20 05:58 | Inpatient (IN) | payer OTHER, MEDICARE ==
[~2018-04-20] VITALS: Ht 121.9 cm; Wt 58.5 kg
[~2018-04-20 05:58] MED LIST changes: +FAMOTIDINE20 MG PO; +GLIPIZIDE5 MG PO; +IMODIUM A-D2 M2 PO; +KLOR-CON M1010 MEQ PO; +LEVEMIR100 UNIT/2 SC; +LIDOCARE1 EACH TP; +METFORMIN HCL850 MG PO; +NOVOLOG 10100 UNITS/ SC; +PANTOPRAZOLE SO40 MG PO
[2018-04-20 07:44] LABS: TROP-I INTERPRETATION NEGATIVE; TROPONIN-I 0.09 ng/mL (0.0-0.30)
[2018-04-20 07:47] LABS: HEMATOCRIT 28.9 % (36.0-46.0); MCH 31.2 PG (29.0-34.0); MCHC 34.6 G/DL (30.0-36.0); NRBC (%) 0.3 /100 WBC (0-0); RBC DIS.WIDTH-CV 16.5 % (11.8-14.6); RBC DIS.WIDTH-SD 53.3 % (39-53); RED BLOOD COUNT 3.21 M/uL (3.80-5.20); WHITE BLOOD COUNT 9.1 K/uL (4.1-10.2)
[2018-04-20 07:56] LABS: CHLORIDE 98 mEq/L (99-109); POTASSIUM 4.1 mEq/L (3.7-5.4); SODIUM 139 mEq/L (136-147)
[2018-04-20 07:57] LABS: GLUCOSE 360 mg/dL (70-99)
[2018-04-20 08:01] LABS: CREATININE 1.1 mg/dL (0.6-1.3); GFR ESTIMATE (CALCULATED) 50 mL/min/
[2018-04-20 08:02] LABS: UREA NITROGEN (BUN) 36 mg/dL (9-23)
[2018-04-20] MEDS ORDERED: METFORMIN HCL500 MG PO (08:07)
[2018-04-20] MEDS ORDERED: TYLENOL EXTRA500 MG PO (08:08)
[2018-04-20] MEDS ORDERED: COLACE100 MG PO (08:08)
[2018-04-20] MEDS ORDERED: LO-DOSE ASPIRIN81 M1 PO (08:09)
[2018-04-20] MEDS ORDERED: RANITIDINE HCL150 MG PO (08:09)
[2018-04-20] MEDS ORDERED: PANTOPRAZOLE SO40 MG PO (08:12)
[2018-04-20] MEDS ORDERED: GLIMEPIRIDE2 MG PO (08:20)
[2018-04-20 08:34] LABS: PLAT.SUFFICIENCY ADEQUATE
[2018-04-20 08:47] LABS: PLATELET COUNT 162 K/uL (156-360)
[2018-04-20 12:04] VITALS: BP 118/57
[2018-04-20 17:30] VITALS: BP 102/50
[2018-04-20 19:50] VITALS: BP 100/55
[2018-04-20 23:00] VITALS: BP 104/58
[2018-04-21 04:15] VITALS: BP 100/55
[2018-04-21 07:00] VITALS: BP 90/55
[2018-04-21 11:43] VITALS: BP 96/68
[2018-04-21 15:39] VITALS: BP 101/57
== END 2018-04-21 17:44 | disposition home or self-care (01) | DRG 83 ==
LOC: EME → TRA 05:58 → EDBD 05:58 → EME 05:58 → EDOF 09:51 → ENRESERV 10:18 → 4EAST 11:31
PROVIDERS: Emergency Medicine; Surgery
DX: S06.6X9A Traumatic subarachnoid hemorrhage with loss of consciousness of unspecified duration, initial encounter (principal); S00.83XA Contusion of other part of head, initial encounter; S02.2XXA Fracture of nasal bones, initial encounter for closed fracture; E78.5 Hyperlipidemia, unspecified; I10 Essential (primary) hypertension; E11.9 Type 2 diabetes mellitus without complications; K21.9 Gastro-esophageal reflux disease without esophagitis; M48.54XA Collapsed vertebra, not elsewhere classified, thoracic region, initial encounter for fracture; Z79.82 Long term (current) use of aspirin; S80.10XA Contusion of unspecified lower leg, initial encounter; M79.641 Pain in right hand; W18.30XA Fall on same level, unspecified, initial encounter; D64.9 Anemia, unspecified
CPT/HCPCS: 70450; 70486; 71046; 72125; 72170; 73030; 73130; 80048; 82948; 84484; 85027; 93005; 99281; 99285; J2405; J7030